=== PATIENT | male | born 1980 | race African-American/Black ===

== ENCOUNTER 2023-02-27 11:08 | Emergency (ER) | payer OTHER ==
[2023-02-27 12:29] LABS: SARS-CoV-2 NAA Rapid Test Not Detected (NotDetected)
== END 2023-02-27 12:04 | disposition home or self-care (01) ==
LOC: CSHERS 11:08
DX: J06.9 Acute upper respiratory infection, unspecified (principal); F17.210 Nicotine dependence, cigarettes, uncomplicated; F17.290 Nicotine dependence, other tobacco product, uncomplicated; I10 Essential (primary) hypertension
CPT/HCPCS: 99283

== ENCOUNTER 2024-03-23 10:45 | Emergency (ER) | payer OTHER, SELFPAY ==
[2024-03-23] MEDS ORDERED: Ketorolac Tromethamine 30 MG (1 mL) VIAL ONE (11:08)
[2024-03-23] MEDS ORDERED: Ondansetron PF 4 MG/2 ML Vial ONE (11:08)
[2024-03-23 12:11] LABS: ALT (SGPT) 48 U/L (Less than 45); AST (SGOT) 43 U/L (11-34); Alkaline Phosphatase 56 U/L (40-110); Anion Gap 14 mmol/L (10-20); BUN (Urea Nitrogen) 14 mg/dL (8.9-20.6); Bilirubin, Total 0.7 mg/dL (0.3-1.2); Calc. Creatinine Clearance 0 mL/min (70-130); Calcium 9.1 mg/dL (7.8-10.44); Carbon Dioxide 25 mmol/L (22-29); Chloride 101 mmol/L (98-107); Estimated GFR 58; Globulin 3.4 g/dL (2.4-3.5); Glucose 109 mg/dL (70-105); Lipase 41 U/L (8-78); Potassium 3.7 mmol/L (3.5-5.1); Protein, Total 7.4 g/dL (6.0-8.3); Sodium 136 mmol/L (136-145)
[2024-03-23 12:12] LABS: Hematocrit 39.5 % (38.8-50.0); Hemoglobin 13.1 g/dL (13.5-17.5); Mean Corpuscular HGB CONC 33.2 g/dL (32.0-36.0); Mean Corpuscular Hemoglobin 29.4 pg (27.0-33.0); Mean Corpuscular Volume 88.8 fL (81.2-95.1); Mean Platelet Volume 10.1 fL (7.4-10.4); Platelet Count 167 10x3/uL (150-450); RBC Distribution Width 12.2 % (11.5-14.5); Red Blood Cell (RBC) Count 4.45 10x6/uL (4.32-5.72); White Blood Cell (WBC) Count 4.16 10x3/uL (3.5-10.5)
[2024-03-23] MEDS ORDERED: Azithromycin 500 MG VIAL ONE ×2 (12:27→12:34)
[2024-03-23 12:43] LABS: Bilirubin Neg (Negative); Blood, Urine 10 (Negative); Clarity Clear (Clear); Glucose, Urine (Dipstick) Normal (Negative); Ketone, Urine Negative (Negative); Leukocyte Negative (Negative); Nitrite Negative (Negative); Protein, Urine (Dipstick) 30 mg/dl (Neg-Trace); Specific Gravity, Urine 1.015 (1.005-1.030); Urobilinogen Normal mg/dL (Less than 2)
[2024-03-23 13:01] LABS: Bacteria/HPF 1+ HPF (None Seen); CAUTI Indications for Culture Pelvic or flank pain; RBC/HPF 0-3 HPF (0-3); Squamous Epithelial 0-3 HPF (0-3); Urine Culture Reflex No No; WBC/HPF 0-3 HPF (0-3)
[2024-03-23 13:36] LABS: Band 4 % (5-11); Lymphocytes 36 % (21-51); MDiff Complete? YES; Monocytes 10 % (0-10); Neutrophil 50 % (42-75); Platelet Adequacy Comment Appears Adequate; RBC Morphology Within Normal Limits
== END 2024-03-23 13:56 | disposition home or self-care (01) ==
LOC: CSHERS 10:45
DX: J18.9 Pneumonia, unspecified organism (principal); E86.0 Dehydration; I10 Essential (primary) hypertension; F17.210 Nicotine dependence, cigarettes, uncomplicated; F17.290 Nicotine dependence, other tobacco product, uncomplicated
CPT/HCPCS: 36415; 71045; 80053; 81001; 83605; 83690; 85025; 87040; 87428; 94760; 96365; 96375; J0456; J1885; J2405